=== PATIENT | female | born 1985 | race Caucasian/White ===

== ENCOUNTER 2018-01-07 06:39 | Day surgery (SDC) | payer BC ==
[~2018-01-07 06:39] MED LIST: Lactated Ringers 1,000 ML IV SCH; Sodium Chloride 0.9% 10 ML Syringe FLUSH PRN; Sodium Chloride 0.9% 2.5 ML Syringe FLUSH PRN
--- NOTE | 2018-01-07 07:15 | PCM.PREANE ---
Preanesthetic Assessment - Anesthesia/Transfusion/Family Hx Anesthesia History: Prior Anesthesia Without Reaction Family History of Anesthesia Reaction: No Transfusion History: No Prior Transfusion(s) Intubation History: Unknown - Review of Systems General: No Symptoms Pulmonary: No Symptoms Cardiovascular: No Symptoms Gastrointestinal: No Symptoms Neurological: No Symptoms Other: Reports: None - Physical Assessment Height: 1.52 m Weight: 50.802 kg ASA Class: 2 Mental Status: Alert & Oriented x3 Airway Class: Mallampati = 2 Dentition: Reports: Broken Tooth/Teeth (multiple a lot of carries) Thyro-Mental Finger Breadths: 2 Mouth Opening Finger Breadths: 2 ROM/Head Extension: Full Lungs: Clear to Auscultation, Normal Respiratory Effort Cardiovascular: Regular Rate, Regular Rhythm - Lab Values: Laboratory Last Values WBC 11.63 K/uL (4.0-11.0) H 01/07/18 07:02 RBC 4.24 M/uL (4.30-5.90) L 01/07/18 07:02 Hgb 13.4 g/dL (12.0-16.0) 01/07/18 07:02 Hct 39.3 % (36.0-46.0) 01/07/18 07:02 MCV 92.7 fL (80.0-98.0) 01/07/18 07:02 MCH 31.6 pg (27.0-32.0) 01/07/18 07:02 MCHC 34.1 g/dL (31.0-37.0) 01/07/18 07:02 RDW Std Deviation 43.2 fl (28.0-62.0) 01/07/18 07:02 RDW Coeff of Chanda 13 % (11.0-15.0) 01/07/18 07:02 Plt Count 350 K/uL (150-400) 01/07/18 07:02 MPV 9.50 fL (7.40-12.00) 01/07/18 07:02 Nucleated RBC % 0.0 /100WBC 01/07/18 07:02 Nucleated RBCs # 0 K/uL 01/07/18 07:02 - Allergies Allergies/Adverse Reactions: Allergies Allergy/AdvReac Type Severity Reaction Status Date / Time No Known Allergies Allergy Verified 01/02/18 12:40 - Blood Blood Available: No - Anesthesia Plan Pre-Op Medication Ordered: None - Acknowledgements Anesthesia Type Planned: MAC Pt an Appropriate Candidate for the Planned Anesthesia: Yes Alternatives and Risks of Anesthesia Discussed w Pt/Guardian: Yes Pt/Guardian Understands and Agrees with Anesthesia Plan: Yes PreAnesthesia Questionnaire HEENT History: Reports: Other (See Below) Other HEENT History: wears glasses/contacts Cardiovascular History: Reports: Heart Murmur Respiratory History: Reports: Other (See Below) Other Respiratory History: asthma in the past Genitourinary History: Reports: None HOG CUTTER History: Reports: Musculoskeletal History: Reports: Fracture Other Musculoskeletal History: hx fx collarbone - Past Surgical History Head Surgeries/Procedures: Reports: None HEENT Surgical History: Reports: Oral Surgery Female Surgical History: Reports: Section - SUBSTANCE USE Smoking Status *Q: Current Every Day Smoker (1ppd) Tobacco Use Within Last Twelve Months: Cigarettes Recreational Drug Use History: No - HOME MEDS Home Medications: Home Meds Norethindrone-Ethinyl Estrad [Necon 0.5-35-28 Tablet] 1 tab PO DAILY 01/02/18 [ History] - CURRENT (IN HOUSE) MEDS Current Meds: Current Medications Lactated Ringer's (Ringers, Lactated) 1,000 mls @ 125 mls/hr IV ASDIRECTED VERONICA Sodium Chloride (Saline Flush) 10 ml FLUSH ASDIRECTED PRN PRN Reason: Keep Vein Open Sodium Chloride (Saline Flush) 2.5 ml FLUSH ASDIRECTED PRN PRN Reason: Keep Vein Open
[2018-01-07] MEDS ORDERED: Propofol 200 MG/20 ML SDV ONE (07:17)
[2018-01-07] MEDS ORDERED: Lidocaine 2% 5 ML SDV ONE (07:17)
[2018-01-07] MEDS ORDERED: fentaNYL 100 MCG/2 ML SDV ONE (07:18)
[2018-01-07] MEDS ORDERED: Midazolam 1 MG/ML 2 ML SDV ONE (07:18)
[2018-01-07] MEDS ORDERED: Ketorolac 30 MG/ML SDV ONE (08:23)
--- NOTE | 2018-01-07 08:42 | PCM.OPNOTE ---
- General Post-Op/Procedure Note Date of Surgery/Procedure: 01/07/18 Operative Procedure(s): Loop electrosurgical excision procedure Findings: Normal appearing cervix, uterus with no adnexal masses Pre Op Diagnosis: Moderate cervical dysplasia Post-Op Diagnosis: Same Anesthesia Technique: MAC Primary Surgeon: Breanne Wilkinson Pathology: Cervical LEEP specimens and ECC Fluid Replacement, Intraop: 1,000 EBL in mLs: 5 Complications: None Condition: Good
[2018-01-07] MEDS ORDERED: Acetaminophen/oxyCODONE 325-5 MG Tab PO PRN (08:44)
--- NOTE | 2018-01-07 09:05 | PCM.POSTAN ---
POST ANESTHESIA ASSESSMENT - MENTAL STATUS Mental Status: Alert - RESPIRATORY Respiratory Status: Respiratory Rate WNL, Airway Patent, O2 Saturation Stable - CARDIOVASCULAR CV Status: Pulse Rate WNL, Blood Pressure Stable - GASTROINTESTINAL GI Status: No Symptoms - PAIN Pain Score: 0 - POST OP HYDRATION Hydration Status: Adequate & Stable - OBSERVATIONS Free Text/Narrative:: no anesthesia problems
--- NOTE | 2018-01-07 11:41 | OR ---
SURGEON: Breanne Wilkinson MD DATE OF PROCEDURE: 01/07/2018 PREOPERATIVE DIAGNOSIS: Moderate cervical dysplasia (cervical intraepithelial neoplasia 2). POSTOPERATIVE DIAGNOSIS: Moderate cervical dysplasia (cervical intraepithelial neoplasia 2). PROCEDURE: Loop electrosurgical excision procedure. ANESTHESIA: MAC. ESTIMATED BLOOD LOSS: Less than 5mls. COMPLICATIONS: None. BRIEF HISTORY: The patient is a 32-year-old lady who was evaluated in the office for abnormal Pap, atypical squamous cells, cannot rule out high-grade intraepithelial lesion. Colposcopy-directed biopsies were consistent with NANCY 2. These findings including management options and alternatives were discussed with the patient and she consented to proceed with an operative procedure in the form of a LEEP. The risks of the procedures were explained to her in detail including, but not limited to infection, bleeding, inability to excise the lesion completely, which might lead to further procedures, and injury to adjacent organs, and possible long-term risk of pre-term delivery due to cervical insufficiency. Understanding these risks, she elected to proceed with surgery. Appropriate consent was obtained. DESCRIPTION OF PROCEDURE: The patient was taken to the operating room. Induction of anesthesia was performed without difficulty. After suitable level of anesthesia, she was placed in dorsal lithotomy position, prepped and draped in the usual fashion for vaginal LEEP procedure. A time-out was held. Examination under anesthesia revealed a normal-sized retroverted uterus. No palpable adnexal masses. The cervix was normal in appearance. No parametrial or paracervical nodularities were palpated. A bivalve-coated speculum was then placed in the vagina with good visualization of the cervix obtained. The vagina was cleaned out. Paracervical block was performed with 1% lidocaine with epinephrine in 1:100,000 dilution. Thereafter using the loop size of 15 x 12 mm, standard LEEP procedure was performed. The cervical specimen was removed in 2 pieces and tagged at 3 and 9 o'clock. Endocervical curetting was then performed and a sample was collected with the Cytobrush. Hemostasis was achieved with cautery ball. The instruments were then removed from the patient's vagina. The instrument, sponge, and needle counts were correct at the end of the procedure. The patient tolerated the procedure well. She was taken to the recovery room in stable condition. GABINO / HERNANDO /[id number] MTDD
== END 2018-01-07 09:45 | disposition home or self-care (01) ==
LOC: MW.SDS 06:39
PROVIDERS: ATTEND Obstetrics & Gynecology
DX: N87.0 Mild cervical dysplasia (principal); J45.909 Unspecified asthma, uncomplicated; F17.210 Nicotine dependence, cigarettes, uncomplicated; Z79.899 Other long term (current) drug therapy
CPT/HCPCS: 36415; 57522; 81025; 85027; J1885; J2250; J3010; J7120; J2704